=== PATIENT | male | born 1995 | race Two or more races ===

== ENCOUNTER 2020-10-21 13:37 | Emergency (ER) | payer OTHER ==
[~2020-10-21] VITALS: Ht 170.2 cm; Wt 81.6 kg
== END 2020-10-21 16:51 | disposition home or self-care (01) ==
LOC: ER 13:37
DX: S50.01XA Contusion of right elbow, initial encounter (principal); W18.31XA Fall on same level due to stepping on an object, initial encounter; Y93.89 Activity, other specified; Y92.89 Other specified places as the place of occurrence of the external cause; Y99.8 Other external cause status